=== PATIENT | male | born 1980 | race Caucasian/White ===

== ENCOUNTER 2018-09-21 20:33 | Emergency (ER) | payer MEDICAID ==
[~2018-09-21] VITALS: Ht 185.4 cm; Wt 104.9 kg
[~2018-09-21 20:33] MED LIST: AZIT250T PO; ONDA4TAB6 PO
[2018-09-21 21:31] LABS: BASOPHILS % (AUTO) 0.4 % (0-1); EOSINOPHILS # (AUTO) 0.2 X10'3 (0-0.9); EOSINOPHILS % (AUTO) 1.9 % (0-6); HEMATOCRIT 44.3 % (42.0-52.0); HEMOGLOBIN 15.1 g/dl (14.0-17.9); LYMPHOCYTES # (AUTO) 1.8 X10'3 (1.1-4.8); LYMPHOCYTES % (AUTO) 14.9 % (21-51); MEAN CORPUSCULAR HEMOGLOBIN 29.5 PG (27.0-31.0); MEAN CORPUSCULAR VOLUME 86.5 FL (78-98); MEAN PLATELET VOLUME 8.2 FL (7.4-10.4); MONOCYTES # (AUTO) 0.9 X10'3 (0-0.9); MONOCYTES % (AUTO) 7.2 % (2-12); NEUTROPHILS # (AUTO) 9.2 X10'3 (1.8-7.7); NEUTROPHILS % (AUTO) 75.6 % (42-75); PLATELET COUNT 295 X10'3 (140-440); RED BLOOD COUNT 5.12 X10'6 (4.70-6.10); RED CELL DISTRIBUTION WIDTH 14.1 % (11.5-14.5); WHITE BLOOD COUNT 12.1 X10'3 (4.5-11.0)
[2018-09-21] MEDS ORDERED: CEPH500C5 PO (21:52)
[2018-09-21] MEDS ORDERED: CefTRIAXone 2gm/D5W 50ml 50 ML IV ONE (21:55)
[2018-09-21 22:56] LABS: ALANINE AMINOTRANSFERASE 114 U/L (12-78); ALBUMIN 4.1 G/DL (3.4-5.0); ALBUMIN/GLOBULIN RATIO 1.1 (1.1-1.5); ALKALINE PHOSPHATASE 123 IU/L (46-116); ANION GAP 10 (8-16); ASPARTATE AMINO TRANSFERASE 43 U/L (10-37); BILIRUBIN,TOTAL 0.5 MG/DL (0.1-1.0); BLOOD UREA NITROGEN 14 MG/DL (7-18); BUN/CREATININE RATIO 11.7 (5.4-32.0); CHLORIDE 106 MMOL/L (99-107); GLUCOSE 97 MG/DL (70-104); MAGNESIUM 1.9 MG/DL (1.5-2.4); POTASSIUM 3.6 MMOL/L (3.5-5.1); SODIUM 142 MMOL/L (135-145); TOTAL CARBON DIOXIDE 25.6 MMOL/L (24-32); eGFR 69 ML/MIN
[2018-09-22 00:02] VITALS: BP 137/71
== END 2018-09-22 00:03 | disposition home or self-care (01) ==
LOC: ER 20:33
DX: L03.115 Cellulitis of right lower limb (principal); D72.829 Elevated white blood cell count, unspecified; Z88.0 Allergy status to penicillin; Z88.2 Allergy status to sulfonamides; Z79.2 Long term (current) use of antibiotics; Z79.899 Other long term (current) drug therapy
CPT/HCPCS: 36415; 73610; 80053; 83605; 83735; 84145; 85025; 85651; 87040; 93005; 96365; 99284; J0696

== ENCOUNTER 2018-10-26 16:47 | Emergency (ER) | payer MEDICAID ==
[~2018-10-26] VITALS: Ht 185.4 cm; Wt 104.0 kg
[~2018-10-26 16:47] MED LIST changes: +CEPH500C5 PO
--- NOTE | 2018-10-26 17:15 | NUR ---
DR TIRADO AT BEDSIDE
[2018-10-26] MEDS ORDERED: LIDOcaine 1% w/epiNEPHrine 1:200,000 30ml vial IM ONE (17:20)
[2018-10-26] MEDS ORDERED: NEOM28.37 TOP (19:21)
[2018-10-26] MEDS ORDERED: CLIN-96 PO (19:21)
[2018-10-26 19:27] VITALS: BP 159/88
== END 2018-10-26 19:57 | disposition home or self-care (01) ==
LOC: ER 16:49
DX: S02.2XXA Fracture of nasal bones, initial encounter for closed fracture (principal); S01.21XA Laceration without foreign body of nose, initial encounter; S01.511A Laceration without foreign body of lip, initial encounter; S51.011A Laceration without foreign body of right elbow, initial encounter; S40.812A Abrasion of left upper arm, initial encounter; S80.812A Abrasion, left lower leg, initial encounter; S80.811A Abrasion, right lower leg, initial encounter; Z88.0 Allergy status to penicillin; Z88.2 Allergy status to sulfonamides; Z79.2 Long term (current) use of antibiotics; Z79.899 Other long term (current) drug therapy; V19.9XXA Pedal cyclist (driver) (passenger) injured in unspecified traffic accident, initial encounter; Y93.89 Activity, other specified; Y92.89 Other specified places as the place of occurrence of the external cause; Y99.8 Other external cause status
CPT/HCPCS: 12001; 12011; 70450; 70486; 72125; 73080; 73564; 99284

== ENCOUNTER 2018-10-28 16:41 | Emergency (ER) | payer MEDICAID ==
[~2018-10-28] VITALS: Ht 185.4 cm; Wt 104.5 kg
[~2018-10-28 16:41] MED LIST changes: +CLIN-96 PO; +NEOM28.37 TOP
[2018-10-28 17:08] VITALS: BP 128/6
[2018-10-28] MEDS ORDERED: diphenhydrAMINE 25mg capsule PO ONE (17:15)
[2018-10-28] MEDS ORDERED: dexamethasone sod phosphate 10mg/ml inj IM STA (17:15)
[2018-10-28] MEDS ORDERED: CEPH250T PO (17:37)
[2018-10-29] MEDS ORDERED: DOXY100C43 PO (22:46)
== END 2018-10-28 18:14 | disposition home or self-care (01) ==
LOC: ER 16:42
DX: S60.221D Contusion of right hand, subsequent encounter (principal); S00.31XD Abrasion of nose, subsequent encounter; T78.40XA Allergy, unspecified, initial encounter; X58.XXXA Exposure to other specified factors, initial encounter; V29.40XD Motorcycle driver injured in collision with unspecified motor vehicles in traffic accident, subsequent encounter; Y93.89 Activity, other specified; Y92.89 Other specified places as the place of occurrence of the external cause; Y99.8 Other external cause status
CPT/HCPCS: 73130; 96372; 99283; J1100; Q0163

== ENCOUNTER 2018-10-29 20:08 | Emergency (ER) | payer MEDICAID ==
[~2018-10-29] VITALS: Ht 185.4 cm; Wt 104.5 kg
[~2018-10-29 20:08] MED LIST changes: +CEPH250T PO
[2018-10-29 20:12] VITALS: BP 146/98
[2018-10-29] MEDS ORDERED: DOXY100C43 PO (22:46)
== END 2018-10-29 23:04 | disposition home or self-care (01) ==
LOC: ER 20:08
DX: S50.811A Abrasion of right forearm, initial encounter (principal); T36.1X5A Adverse effect of cephalosporins and other beta-lactam antibiotics, initial encounter; G90.1 Familial dysautonomia [Riley-Day]; L92.8 Other granulomatous disorders of the skin and subcutaneous tissue; Z88.0 Allergy status to penicillin; Z88.1 Allergy status to other antibiotic agents; Z88.2 Allergy status to sulfonamides; Z88.8 Allergy status to other drugs, medicaments and biological substances; Z79.899 Other long term (current) drug therapy; V19.9XXA Pedal cyclist (driver) (passenger) injured in unspecified traffic accident, initial encounter; Y93.89 Activity, other specified; Y92.89 Other specified places as the place of occurrence of the external cause; Y99.8 Other external cause status
CPT/HCPCS: 99283

== ENCOUNTER 2018-11-11 08:14 | Emergency (ER) | payer MEDICAID ==
[~2018-11-11] VITALS: Ht 185.4 cm; Wt 100.0 kg
[~2018-11-11 08:14] MED LIST changes: -CEPH250T PO
[2018-11-11 08:19] VITALS: BP 130/89
--- NOTE | 2018-11-11 08:25 | NUR ---
REMOVED SUTURES; 2 FROM NOSE, 1 FROM LIP AND 2 FROM RT ELBOW; TOTAL OF 5 SUTURES REMOVED INTACT. PT TOLERATED IT WELL
== END 2018-11-11 08:33 | disposition home or self-care (01) ==
LOC: ER 08:14
DX: S01.511D Laceration without foreign body of lip, subsequent encounter (principal); S01.21XD Laceration without foreign body of nose, subsequent encounter; S51.011D Laceration without foreign body of right elbow, subsequent encounter; T81.30XD Disruption of wound, unspecified, subsequent encounter; Z88.0 Allergy status to penicillin; Z88.1 Allergy status to other antibiotic agents; Z88.2 Allergy status to sulfonamides; Z88.8 Allergy status to other drugs, medicaments and biological substances; Z79.899 Other long term (current) drug therapy; V29.40XD Motorcycle driver injured in collision with unspecified motor vehicles in traffic accident, subsequent encounter
CPT/HCPCS: 99281

== ENCOUNTER 2018-12-31 02:45 | Emergency (ER) | payer MEDICAID ==
[~2018-12-31] VITALS: Ht 185.4 cm; Wt 100.0 kg
[~2018-12-31 02:45] MED LIST changes: +CLIN-90 PO; -CLIN-96 PO
[2018-12-31] MEDS ORDERED: ketorolac trometh inj. 60 MG/2 ML VIAL IM ONE (03:00)
[2018-12-31 03:17] VITALS: BP 127/103
== END 2018-12-31 03:19 | disposition home or self-care (01) ==
LOC: ER 02:45
DX: M54.2 Cervicalgia (principal); Z98.890 Other specified postprocedural states; Z88.0 Allergy status to penicillin; Z88.1 Allergy status to other antibiotic agents; Z88.2 Allergy status to sulfonamides; Z88.8 Allergy status to other drugs, medicaments and biological substances; Z79.899 Other long term (current) drug therapy
CPT/HCPCS: 96372; 99283; J1885

== ENCOUNTER 2019-01-18 04:17 | Emergency (ER) | payer MEDICAID ==
[~2019-01-18] VITALS: Ht 185.4 cm; Wt 104.5 kg
[2019-01-18 04:18] VITALS: BP 147/92
[2019-01-18] MEDS ORDERED: normal saline 1000ML IV soln IVB ONE (04:30)
== END 2019-01-18 05:43 | disposition home or self-care (01) ==
LOC: ER 04:18
DX: G90.1 Familial dysautonomia [Riley-Day] (principal); Z56.0 Unemployment, unspecified; Z98.890 Other specified postprocedural states; Z88.0 Allergy status to penicillin; Z88.1 Allergy status to other antibiotic agents; Z88.2 Allergy status to sulfonamides; Z88.8 Allergy status to other drugs, medicaments and biological substances; Z79.899 Other long term (current) drug therapy
CPT/HCPCS: 99283; J7030